=== PATIENT | male | born 1980 | race Hispanic/Latino ===

== ENCOUNTER 2018-12-31 09:36 | Day surgery (SDC) | payer MEDICARE ==
--- NOTE | 2018-12-31 10:09 | Anesthesia Consultation ---
Anesthesia Consult and Med Hx - Airway Anesthetic Teeth Evaluation: Good ROM Head & Neck: Adequate Mental/Hyoid Distance: Adequate Mallampati Class: Class II Intubation Access Assessment: Good - Pulmonary Exam CTA: Yes - Cardiac Exam Cardiac Exam: RRR - Pre-Operative Health Status ASA Pre-Surgery Classification: ASA2 Proposed Anesthetic Plan: General - Pulmonary Hx Smoking: No - Cardiovascular System Hx Hypertension: No - Central Nervous System Hx Back Pain: Yes Hx Psychiatric Problems: Yes (PTSD- ) - Other Systems Hx Alcohol Use: No Hx Substance Use: No - Additional Comments Anesthesia Medical History Comments: Hx of RA and PTSD for cysto under [place]
--- NOTE | 2018-12-31 10:10 | Anesthesia Day of Surgery ---
Anesthesia Day of Surgery - Day of Surgery Patient Examined: Yes Patient H&P Reviewed: Yes Patient is NPO: Yes
[2018-12-31] MEDS ORDERED: DIPRIVAN 10 MG/ML IV ONE (10:55)
[2018-12-31] MEDS ORDERED: SUBLIMAZE ONE (10:56)
[2018-12-31] MEDS ORDERED: VERSED IV NR (11:00)
[2018-12-31] MEDS ORDERED: LACTATED RINGERS 1,000 ML IV SCH (11:00)
[2018-12-31] MEDS ORDERED: ANCEF/STERILE WATER 2 GM/20 ML IV NR (11:25)
[2018-12-31] MEDS ORDERED: XYLOCAINE MPF 2% ONE (11:26)
[2018-12-31] MEDS ORDERED: ZOFRAN ONE (11:26)
[2018-12-31] MEDS ORDERED: OMNIPAQUE (300 MG) IR ONE (11:40)
--- NOTE | 2018-12-31 12:09 | Short Stay Summary ---
Short Stay Documentation Date of service: 12/31/18 - History H&P: obtained from office - Allergies and Medications Current Medications: Allergies No Known Allergies Allergy (Unverified 12/31/18 10:27) Home Medications Medication Instructions Recorded Confirmed Last Taken Type Venlafaxine HCl [Venlafaxine HCl 225 mg PO DAILY 12/31/18 12/31/18 12/30/18 History ER] traZODone [Desyrel] 50 mg PO TID 12/31/18 12/31/18 12/30/18 History Active Medications Cefazolin Sodium (Ancef/Sterile Water 2 Gm/20 Ml) 2 gm IV PREOP NR Stop: 12/31/18 23:59 Lactated Ringer's (Lactated Ringers) 1,000 mls @ 75 mls/hr IV DIRECT JAH Last Admin: 12/31/18 11:00 Dose: 75 mls/hr Documented by: Midazolam HCl (Versed) 2 mg IV PREOP NR Stop: 12/31/18 23:59 Last Admin: 12/31/18 11:01 Dose: 2 mg Documented by: - Brief post op/procedure progress note Date of procedure: 12/31/18 Pre-op diagnosis: left ureteral stone Post-op diagnosis: other (left ureteral stricture) Procedure: cysto, rpg, left ureteral dilation, ureteroscopy , stent Anesthesia: GETA Surgeon: ALEK CALDERA Estimated blood loss: none Condition: stable - Hospital course Hospital course: bactrim,norco, post op info on chart - Disposition Condition at discharge: Stable Disposition: DC-01 TO HOME OR SELFCARE Short Stay Discharge Plan Follow up with: MILAN MAHER MD [Primary Care Provider] - 7 Days
[2018-12-31] MEDS: DILAUDID IV PRN ×2 (12:30→12:48)
[2018-12-31] MEDS ORDERED: NORCO 5/325 PO PRN (12:34)
--- NOTE | 2018-12-31 12:34 | Operative Report ---
PREOPERATIVE DIAGNOSES: Left ureteral stone, bilateral renal stones. POSTOPERATIVE DIAGNOSES: Left ureteral stone, bilateral renal stones, passed stones, left distal ureteral stricture. PROCEDURE: Cystoscopy, bilateral retrograde pyelograms, left dilatation of the ureter, rigid ureteroscopy, double-J stent (6-Nigerian 26 cm with an external string). SURGEON: Evan Dumont MD ANESTHESIA: General. ESTIMATED BLOOD LOSS: Minimal. FLUIDS: Crystalloid. COMPLICATIONS: No complications. INDICATIONS: This patient is a 38-year-old gentleman seen in the office with left flank pain. CT abdomen and pelvis revealed a mid ureteral stone on the left side and small stones in both kidneys. Due to persistent pain, the patient presents for surgical intervention. DESCRIPTION OF PROCEDURE: The patient was taken to the operative suite, placed in a supine position. After adequate general anesthesia, placed in a dorsal lithotomy position, prepped and draped in a sterile fashion. Pancystourethroscopy was performed with a 22-Nigerian Storz cystoscope. No urethral abnormalities. His prostate was nonobstructing. His bladder, no tumors or stones. Bilateral retrograde pyelograms were obtained with an 8 Nigerian Chava catheter and 8 mL of contrast. No filling defects or obstruction on the right. Some narrowing of the distal ureter on the left. Two 0.035 guidewires were placed. Rigid ureteroscopy was attempted. There was significant stenosis of the distal ureter. A 16-Nigerian dilation system was used to dilate over the wire on the left side. It was removed. Ureteroscopy was performed. I could see some edema suggesting a recently passed stone. The scope was removed. A 6-Nigerian 26 cm double-J stent with an external string was left indwelling. Rectal exam was benign. He was extubated and taken to recovery room in stable condition. He will go home on Bactrim and [place]. JOB# [id number] [facility]
[2018-12-31 13:12] VITALS: BP 135/87
--- NOTE | 2018-12-31 18:54 | Post Anesthesia Evaluation ---
- Post Anesthesia Evaluation Patient Participated: Yes Airway Patent: Yes Stable Respiratory Function: Yes Nausea/Vomiting: No Temp > 96.8F: Yes Pain Manageable: Yes Adequeate Hydration: Yes Anesthesia Complications: No Block Receding Appropriately: Not Applicable Patient on Ventilator: No
--- NOTE | 2019-01-02 07:42 | Fluoroscopy Report ---
FLUOROSCOPY RETROGRADE UROGRAPHY: HISTORY: Left ureteral stone. FINDINGS: Fluoroscopy was provided by radiology during retrograde urography by the urologist. 8 fluoroscopic images were captured. There is adequate filling of the ureters and intrarenal collecting systems with no filling defects or anatomic abnormalities identified. Left ureteroscopy and left ureteral stent placement was performed. Please correlate with the procedural report if needed. IMPRESSION: Retrograde pyelograms within normal limits. Left ureteral stent placement.
== END 2018-12-31 14:00 | disposition home or self-care (01) ==
LOC: OR 09:36
PROVIDERS: ATTEND Urology
DX: N35.919 Unspecified urethral stricture, male, unspecified site (principal); N20.2 Calculus of kidney with calculus of ureter; Z79.899 Other long term (current) drug therapy; Z98.890 Other specified postprocedural states
CPT/HCPCS: 52332; 52344; 74420; C1726; C1758; C1769; C2617; J0690; J1170; J2250; J2405; J2704; J3010; J7120; Q9967